=== PATIENT | female | born 1960 | race Caucasian/White ===

== ENCOUNTER 2016-05-14 22:51 | Emergency (ER) | payer SELFPAY ==
[~2016-05-14] VITALS: Ht 170.2 cm; Wt 66.0 kg
[~2016-05-14 22:51] MED LIST: Z.0.NO CURRENT MEDS
[2016-05-14 23:00] VITALS: BP 122/70; PULSE 88; RESP 20; TEMP 98.2; O2SAT 98
[2016-05-14 23:39] LABS: AUTOMATED NEUTROPHIL # 4.1 TH/MM3 (1.8-7.7); BASOPHIL # 0.1 TH/MM3 (0-0.2); BASOPHIL % 0.7 % (0.0-2.0); EOSINOPHIL # 0.1 TH/MM3 (0-0.4); EOSINOPHIL % 1.7 % (0.0-4.0); HEMATOCRIT 41.1 % (35.0-46.0); HEMO FLAGS DIFF FINAL; LYMPH % 41.1 % (9.0-44.0); LYMPHOCYTE # 3.3 TH/MM3 (1.0-4.8); MEAN CELL VOLUME 96.6 FL (80.0-100.0); MEAN CORPUSCULAR HEMOGLOBIN 32.8 PG (27.0-34.0); MEAN CORPUSCULAR HGB CONC 33.9 % (32.0-36.0); MONO % 6.5 % (0.0-8.0); PLATELET COUNT 188 TH/MM3 (150-450); RED BLOOD COUNT 4.26 MIL/MM3 (4.00-5.30); RED CELL DISTRIBUTION WIDTH 13.7 % (11.6-17.2); WHITE BLOOD COUNT 8.1 TH/MM3 (4.0-11.0)
[2016-05-14 23:43] LABS: BLOOD, URINE NEG (NEG); GLUCOSE,URINE NEG (NEG); KETONE, URINE NEG (NEG); NITRITE,URINE NEG (NEG); URINE COLOR COLORLESS (YELLW/STRAW)
[2016-05-14 23:44] LABS: COMMENT (UR) CULT NOT INDICATED; CULTURE IF INDICATED CULT NOT INDICATED
[2016-05-14 23:50] LABS: AMPHETAMINE, URINE NEG (NEG); BARBITURATES, URINE NEG (NEG); COCAINE, URINE NEG (NEG)
[2016-05-14 23:59] LABS: ALT (GPT) 43 U/L (10-53); ANION GAP 11 MEQ/L (5-15); AST (GOT) 62 U/L (15-37); BICARBONATE 26.2 MEQ/L (21.0-32.0); BLOOD UREA NITROGEN 4 MG/DL (7-18); CHLORIDE 103 MEQ/L (98-107); GLOMERULAR FILTRATION RATE 123 ML/MIN (>89); POTASSIUM 3.3 MEQ/L (3.5-5.1); SODIUM (NA) 140 MEQ/L (136-145)
[2016-05-15 00:02] LABS: ALKALINE PHOSPHATASE 61 U/L (45-117); TOTAL BILIRUBIN ADULT 0.2 MG/DL (0.2-1.0)
[2016-05-15] MEDS ORDERED: TRAZ50TA12 PO (01:24)
[2016-05-15] MEDS ORDERED: VENL75TA PO (01:24)
[2016-05-15] MEDS ORDERED: POTASSIUM CHLORIDE 20 MEQ CONTROLLED RELEASE TAB PO ONE (01:30)
--- NOTE | 2016-05-15 01:34 | PD ---
HPI Chief Complaint: Psychiatric Symptoms Time Seen by Provider: 01:30 Travel History International Travel<30 days: No Contact w/Intl Traveler<30days: No Traveled to known affect area: No History of Present Illness HPI Patient comes in under a [place] act by police for depression and tearing up her house. Patient denies any homicidal or suicidal ideations. Patient states she is just feeling depressed and drank a little too much tonight. Denies any medical concerns. Denies any chest pain, shortness breath, nausea, vomiting, abdominal pain, or fevers. PFSH Past Medical History Medical History: Denies Significant Hx Immunizations Current: Yes Tetanus Vaccination: Unknown Influenza Vaccination: No ?: Not Past Surgical History Abdominal Surgery: Yes (BOWEL RESECECTION) Hysterectomy: Yes Social History Alcohol Use: No Tobacco Use: Yes (1 PPD) Substance Use: No Allergies-Medications (Allergen,Severity, Reaction): Coded Allergies: No Known Allergies (Verified , 05/14/16) Reported Meds & Prescriptions Reported Meds & Active Scripts Active Reported Trazodone (Trazodone HCl) 50 Mg Tab 50 Mg PO TID PRN Effexor (Venlafaxine HCl) 75 Mg Tab 75 Mg PO DAILY Review of Systems Except as stated in HPI: all other systems reviewed are Neg Physical Exam Narrative GENERAL: Well-developed, well nourished, in no acute distress, and non-ill appearing. SKIN: Warm and dry. HEAD: Atraumatic. Normocephalic. EYES: Pupils equal and round. EOMI. No scleral icterus. No injection or drainage. ENT: No nasal bleeding or discharge. Mucous membranes pink and moist. NECK: Trachea midline. Supple. No nuclear rigidity. CARDIOVASCULAR: Regular rate and rhythm. No murmur appreciated. RESPIRATORY: No accessory muscle use. No respiratory distress. Clear to auscultation. Breath sounds equal bilaterally. MUSCULOSKELETAL: No obvious deformities. No clubbing. No cyanosis. No edema. Full range of motion. NEUROLOGICAL: Awake and alert. No obvious cranial nerve deficits. Motor grossly within normal limits. Normal speech. PSYCHIATRIC: Appropriate mood and affect; insight and judgment normal. Data Data Last Documented VS Vital Signs Date Time Temp Pulse Resp B/P Pulse Ox O2 Delivery O2 Flow Rate FiO2 05/14/16 23:00 98.2 88 20 122/70 98 Orders Complete Blood Count With Diff (05/14/16 23:09) Comprehensive Metabolic Panel (05/14/16 23:09) Urinalysis - C+S If Indicated (05/14/16 23:09) Psych Screen (05/14/16 23:09) Diet Regular Basic (05/15/16 Breakfast) Drug Screen, Random Urine (05/14/16 23:09) Alcohol (Ethanol) (05/14/16 23:09) Potassium Chloride (Kcl) (05/15/16 01:30) Labs Laboratory Tests Test 05/14/16 05/14/16 23:10 23:15 Urine Color COLORLESS Urine Turbidity CLEAR Urine pH 5.0 Urine Specific [place] 1.002 Urine Protein NEG mg/dL Urine Glucose (UA) NEG mg/dL Urine Ketones NEG mg/dL Urine Occult Blood NEG Urine Nitrite NEG Urine Bilirubin NEG Urine Urobilinogen LESS THAN 2.0 MG/DL Urine Leukocyte Esterase NEG Urine RBC 1 /hpf Microscopic Urinalysis Comment CULT NOT INDICATED Urine Opiates Screen NEG Urine Barbiturates Screen NEG Urine Amphetamines Screen NEG Urine Benzodiazepines Screen NEG Urine Cocaine Screen NEG Urine Cannabinoids Screen NEG White Blood Count 8.1 TH/MM3 Red Blood Count 4.26 MIL/MM3 Hemoglobin 14.0 GM/DL Hematocrit 41.1 % Mean Corpuscular Volume 96.6 FL Mean Corpuscular Hemoglobin 32.8 PG Mean Corpuscular Hemoglobin 33.9 % Concent Red Cell Distribution Width 13.7 % Platelet Count 188 TH/MM3 Mean Platelet Volume 9.5 FL Neutrophils (%) (Auto) 50.0 % Lymphocytes (%) (Auto) 41.1 % Monocytes (%) (Auto) 6.5 % Eosinophils (%) (Auto) 1.7 % Basophils (%) (Auto) 0.7 % Neutrophils # (Auto) 4.1 TH/MM3 Lymphocytes # (Auto) 3.3 TH/MM3 Monocytes # (Auto) 0.5 TH/MM3 Eosinophils # (Auto) 0.1 TH/MM3 Basophils # (Auto) 0.1 TH/MM3 CBC Comment DIFF FINAL Differential Comment Sodium Level 140 MEQ/L Potassium Level 3.3 MEQ/L Chloride Level 103 MEQ/L Carbon Dioxide Level 26.2 MEQ/L Anion Gap 11 MEQ/L Blood Urea Nitrogen 4 MG/DL Creatinine 0.52 MG/DL Estimat Glomerular Filtration 123 ML/MIN Rate Random Glucose 78 MG/DL Calcium Level 8.6 MG/DL Total Bilirubin 0.2 MG/DL Aspartate Amino Transf 62 U/L (AST/SGOT) Alanine Aminotransferase 43 U/L (ALT/SGPT) Alkaline Phosphatase 61 U/L Total Protein 7.8 GM/DL Albumin 4.3 GM/DL Ethyl Alcohol Level 276 MG/DL MDM Medical Decision Making Medical Screen Exam Complete: Yes Emergency Medical Condition: Yes Differential Diagnosis Depression, suicidal, homicidal, alcohol intoxication, other Narrative Course Patient was seen and examined. Labs were obtained and reviewed. Patient medically cleared for further treatment and evaluation by psych. Final disposition per psych. Diagnosis Primary Impression: Alcohol intoxication Qualified Code: F10.120 - Alcohol intoxication, uncomplicated Additional Impression: Hypokalemia Condition: Stable Jose Levy May 15, 2016 01:34
[2016-05-15 05:14] VITALS: BP 126/70; PULSE 96; RESP 18
[2016-05-15 10:00] VITALS: BP 112/77; PULSE 98; RESP 18; TEMP 97.4; O2SAT 96
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
== END 2016-05-15 13:41 | disposition home or self-care (01) ==
LOC: NEPJ 22:51
DX: F10.120 Alcohol abuse with intoxication, uncomplicated (principal); E87.6 Hypokalemia; F17.200 Nicotine dependence, unspecified, uncomplicated; Z86.59 Personal history of other mental and behavioral disorders
CPT/HCPCS: 80053; 80307; 81001; 85025; 99283

== ENCOUNTER 2016-06-28 10:35 | Observation (INO) | payer SELFPAY ==
[2016-06-28] VITALS (10 sets, daily range): BP systolic 140–170; BP diastolic 88–101; PULSE 65–82; RESP 16–20; TEMP 96.7–98.6; O2SAT 64–99
[~2016-06-28] VITALS: Ht 167.6 cm; Wt 62.5 kg
[~2016-06-28 10:35] MED LIST changes: +TRAZ50TA12 PO; +VENL75TA PO; -Z.0.NO CURRENT MEDS
[2016-06-28] MEDS ORDERED: MORPHINE SULFATE 4 MG/ML INJ IV PUSH ONE ×2 (11:00→12:45)
[2016-06-28] MEDS ORDERED: SODIUM CHLORIDE 0.9% FLUSH 10 ML FLUSH IVF PRN (11:00)
[2016-06-28] MEDS ORDERED: ASPIRIN 325 MG TAB PO ONE (11:00)
--- NOTE | 2016-06-28 11:20 | PD ---
HPI Chief Complaint: Respiratory Symptoms Time Seen by Provider: 10:52 Travel History International Travel<30 days: No Contact w/Intl Traveler<30days: No Traveled to known affect area: No History of Present Illness HPI 55yo F with PMH of depression presents to the ED with c/o chest pain for 1 week but worst last night. Pt states her was playing with her 5 days ago and tried to pick her up with his shoulder but was not able to. Then she started feeling soreness in her chest and pain in bilateral chest wall radiating to bilateral upper back and pain is sharp and worst with movement. States pain was so bad she felt difficulty breathing last night. States started off as soreness but now has midsternal chest pain since last night. Denies any fever, fall, n/v, diaphoresis, abdominal pain, focal weakness or numbness. PFSH Past Medical History Hx Anticoagulant Therapy: No Diabetes: No Immunizations Current: Yes ?: Not Past Surgical History Abdominal Surgery: Yes (BOWEL RESECECTION) Hysterectomy: Yes Social History Alcohol Use: No Tobacco Use: Yes (1 PPD) Substance Use: Yes Allergies-Medications (Allergen,Severity, Reaction): Coded Allergies: No Known Allergies (Verified , 06/28/16) Reported Meds & Prescriptions Reported Meds & Active Scripts Active Reported Motrin Ib (Ibuprofen) 200 Mg Tab 800 Mg PO Q6H PRN Trazodone (Trazodone HCl) 50 Mg Tab 100 Mg PO HS PRN Effexor (Venlafaxine HCl) 75 Mg Tab 75 Mg PO TID Review of Systems Except as stated in HPI: all other systems reviewed are Neg Physical Exam Narrative GENERAL: 55yo F in moderate distress. SKIN: Focused skin assessment warm/dry. HEAD: Atraumatic. Normocephalic. EYES: Pupils equal and round. No scleral icterus. No injection or drainage. ENT: No nasal bleeding or discharge. Mucous membranes pink and moist. NECK: Trachea midline. No JVD. CARDIOVASCULAR: Regular rate and rhythm. No murmur appreciated. RESPIRATORY: No accessory muscle use. Clear to auscultation. Breath sounds equal bilaterally. CHEST WALL: No erythema, no crepitus, diffuse ttp. GASTROINTESTINAL: Abdomen soft, non-tender, nondistended. BACK: No midline ttp. +TTP bilateral upper trapezius. MUSCULOSKELETAL: No obvious deformities. No clubbing. No cyanosis. No edema. NEUROLOGICAL: Awake and alert. No obvious cranial nerve deficits. Motor grossly within normal limits. Normal speech. PSYCHIATRIC: Appropriate mood and affect; insight and judgment normal. Data Data Last Documented VS Vital Signs Date Time Temp Pulse Resp B/P Pulse Ox O2 Delivery O2 Flow Rate FiO2 06/28/16 12:34 72 18 142/89 97 Nasal Cannula 2 06/28/16 10:43 98.6 Orders Basic Metabolic Panel (Bmp) (06/28/16 11:00) Ckmb (Isoenzyme) Profile (06/28/16 11:00) Complete Blood Count With Diff (06/28/16 11:00) Magnesium (Mg) (06/28/16 11:00) Prothrombin Time / Inr (Pt) (06/28/16 11:00) Act Partial Throm Time (Ptt) (06/28/16 11:00) Troponin I (06/28/16 11:00) Chest, Single Ap (06/28/16 11:00) Ecg Monitoring (06/28/16 11:00) Bilateral Bp Monitoring (06/28/16 11:00) Iv Access Insert/Monitor (06/28/16 11:00) Oximetry (06/28/16 11:00) Oxygen Administration (06/28/16 11:00) Morphine Inj (Morphine Inj) (06/28/16 11:00) Sodium Chloride 0.9% Flush (Ns Flush) (06/28/16 11:00) Aspirin (Aspirin) (06/28/16 11:00) CKMB (06/28/16 11:30) CKMB% (06/28/16 11:30) Ct Pulmonary Angiogram (06/28/16 ) Admit Order (Ed Use Only) (06/28/16 12:34) Morphine Inj (Morphine Inj) (06/28/16 12:45) Place In Observation (06/28/16 ) Code Status (06/28/16 12:45) Vital Signs (Adult) Q4H (06/28/16 12:45) Activity Oob Ad Carli (06/28/16 12:45) Director Of Purchasing / Telemetry .CONTINUOUS (06/28/16 12:45) Diet Heart Healthy (06/28/16 Lunch) Sodium Chloride 0.9% Flush (Ns Flush) (06/28/16 12:45) Sodium Chloride 0.9% Flush (Ns Flush) (06/28/16 21:00) Acetaminophen (Tylenol) (06/28/16 12:45) Ondansetron Inj (Zofran Inj) (06/28/16 12:45) Magnesium Hydroxide Liq (Milk Of Magnesi (06/28/16 12:45) Basic Metabolic Panel (Bmp) (06/29/16 06:00) Complete Blood Count With Diff (06/29/16 06:00) Troponin I (06/28/16 16:00) Troponin I (06/28/16 22:00) Electrocardiogram (06/28/16 16:00) Electrocardiogram (06/28/16 22:00) Resp Oxygen Cedrick C Titrat 1-4 L (06/28/16 ) Enoxaparin Inj (Lovenox Inj) (06/28/16 15:00) Naloxone Inj (Narcan Inj) (06/28/16 12:45) Labs Laboratory Tests Test 06/28/16 11:30 White Blood Count 7.4 TH/MM3 Red Blood Count 4.67 MIL/MM3 Hemoglobin 15.1 GM/DL Hematocrit 45.4 % Mean Corpuscular Volume 97.1 FL Mean Corpuscular Hemoglobin 32.3 PG Mean Corpuscular Hemoglobin 33.3 % Concent Red Cell Distribution Width 12.9 % Platelet Count 222 TH/MM3 Mean Platelet Volume 8.9 FL Neutrophils (%) (Auto) 65.1 % Lymphocytes (%) (Auto) 23.2 % Monocytes (%) (Auto) 8.9 % Eosinophils (%) (Auto) 2.2 % Basophils (%) (Auto) 0.6 % Neutrophils # (Auto) 4.8 TH/MM3 Lymphocytes # (Auto) 1.7 TH/MM3 Monocytes # (Auto) 0.7 TH/MM3 Eosinophils # (Auto) 0.2 TH/MM3 Basophils # (Auto) 0.0 TH/MM3 CBC Comment DIFF FINAL Differential Comment Prothrombin Time 9.5 SEC Prothromb Time International 0.9 RATIO Ratio Activated Partial 25.8 SEC Thromboplast Time Sodium Level 143 MEQ/L Potassium Level 3.9 MEQ/L Chloride Level 108 MEQ/L Carbon Dioxide Level 27.6 MEQ/L Anion Gap 7 MEQ/L Blood Urea Nitrogen 8 MG/DL Creatinine 0.60 MG/DL Estimat Glomerular Filtration 105 ML/MIN Rate Random Glucose 95 MG/DL Calcium Level 9.1 MG/DL Magnesium Level 2.5 MG/DL Total Creatine Kinase 181 U/L Creatine Kinase MB 2.8 NG/ML Troponin I LESS THAN 0.02 NG/ML MDM Medical Decision Making Medical Screen Exam Complete: Yes Emergency Medical Condition: Yes Interpretation(s) EKG: NSR 84bpm. Normal axis. Peaked T waves. No ST segment elevation or depression. Differential Diagnosis Musculoskeletal pain vs. electrolyte abnormality vs. ACS vs. Pneumonia Narrative Course 55yo F with atypical chest pain that is worst since yesterday. Pt also started feeling sob since yesterday. Labs reviewed, no leukocytosis. Troponin negative. CXR showed no acute disease. EKG showed peaked T waves and K is normal at 3.9. Am concerning if this is hyperacute T wave and pt has not had any cardiac work up or similar chest pain. Pt is over 50 year old so cannot use PERC rule to r/o PE. Will obtain CT angio. CT angio showed no PE, mild emphysema. Discussed with Dr. Clinton and will admit to chest pain center for serial EKG and cardiac enzymes. Diagnosis Primary Impression: Chest pain Qualified Code: R07.9 - Chest pain, unspecified type Admitting Information Admitting Physician Requests: Lucille Sierra DO Jun 28, 2016 11:20
[2016-06-28] MEDS ORDERED: MOTR200T4 PO (11:24)
[2016-06-28 11:38] LABS: AUTOMATED NEUTROPHIL # 4.8 TH/MM3 (1.8-7.7); BASOPHIL % 0.6 % (0.0-2.0); EOSINOPHIL # 0.2 TH/MM3 (0-0.4); EOSINOPHIL % 2.2 % (0.0-4.0); HEMATOCRIT 45.4 % (35.0-46.0); HEMO FLAGS DIFF FINAL; LYMPH % 23.2 % (9.0-44.0); LYMPHOCYTE # 1.7 TH/MM3 (1.0-4.8); MEAN CELL VOLUME 97.1 FL (80.0-100.0); MEAN CORPUSCULAR HEMOGLOBIN 32.3 PG (27.0-34.0); MEAN CORPUSCULAR HGB CONC 33.3 % (32.0-36.0); MONO % 8.9 % (0.0-8.0); NEUT % 65.1 % (16.0-70.0); PLATELET COUNT 222 TH/MM3 (150-450); RED BLOOD COUNT 4.67 MIL/MM3 (4.00-5.30); RED CELL DISTRIBUTION WIDTH 12.9 % (11.6-17.2); WHITE BLOOD COUNT 7.4 TH/MM3 (4.0-11.0)
--- NOTE | 2016-06-28 11:46 | RADHPO ---
EXAM DATE/TIME: 06/28/2016 11:21 [place] COMPARISON: No previous studies available for comparison. INDICATIONS : Chest Pain MEDICAL HISTORY : None. SURGICAL HISTORY : None. ENCOUNTER: Initial ACUITY: 1 day PAIN SCORE: 8/10 LOCATION: Bilateral chest FINDINGS: A single view of the chest demonstrates the lungs to be symmetrically aerated without evidence of mas s, infiltrate or effusion. The cardiomediastinal contours are unremarkable. Osseous structures are intact. CONCLUSION: No acute disease. Yair Restrepo MD on June 28, 2016 at 11:44 Board Certified Radiologist. This report was verified electronically.
[2016-06-28 11:49] LABS: CHLORIDE 108 MEQ/L (98-107); POTASSIUM 3.9 MEQ/L (3.5-5.1); SODIUM (NA) 143 MEQ/L (136-145)
[2016-06-28 11:53] LABS: APTT (PATIENT) 25.8 SEC (24.3-30.1); INTERNATIONAL NORMALIZED RATIO 0.9 RATIO; PROTHROMBIN TIME - PATIENT 9.5 SEC (9.8-11.6)
[2016-06-28 11:56] LABS: ANION GAP 7 MEQ/L (5-15); BICARBONATE 27.6 MEQ/L (21.0-32.0)
[2016-06-28 11:57] LABS: BLOOD UREA NITROGEN 8 MG/DL (7-18); MAGNESIUM 2.5 MG/DL (1.5-2.5)
[2016-06-28 12:00] LABS: GLOMERULAR FILTRATION RATE 105 ML/MIN (>89)
[2016-06-28 12:03] LABS: CREATINE KINASE 181 U/L (26-192)
[2016-06-28 12:15] LABS: CKMB 2.8 NG/ML (0.5-3.6)
[2016-06-28] MEDS ORDERED: SODIUM CHLORIDE 0.9% FLUSH 10 ML FLUSH IV FLUSH PRN (12:45)
[2016-06-28] MEDS ORDERED: MAGNESIUM HYDROXIDE SUSP 30 ML CUP PO PRN (12:45)
[2016-06-28] MEDS ORDERED: ONDANSETRON HCL 4 MG/2 ML VIAL IVP PRN (12:45)
[2016-06-28] MEDS ORDERED: NALOXONE HCL 0.4 MG/ML AMP IV PRN (12:45)
[2016-06-28] MEDS ORDERED: ACETAMINOPHEN 325 MG TAB PO PRN (12:45)
--- NOTE | 2016-06-28 13:25 | HHI.HP ---
[facility] Ang[facility]lica Chacko Admission Diagnosis Chest pain Diagnoses: Chief Complaint: Sharp chest pain. Travel History International Travel<30 Days: No Contact w/Intl Traveler <30 Da: No Traveled to Known Affected Are: No History of Present Illness Ms. Chairez is a pleasant 55-year-old female with a history of smoking who presents to the emergency department due to sharp anterior chest pain that started about 5 days ago. The day before her onset of symptoms, patient's lifted her up on his shoulder. From the following day patient started having sharp anterior chest pain, worst with movement. Taking a deep breath also increases her anterior chest pain. She denies any nausea vomiting or diaphoresis. No changes in bowel or bladder habits. No fever chills or cough. Review of Systems Except as stated in HPI: all other systems reviewed are Neg Past Family Social History Past Medical History Depression, bladder incontinence Past Surgical History Total hysterectomy, bowel resection, hernia repair, torn meniscus repair Reported Medications Motrin Ib (Ibuprofen) 200 Mg Tab 800 Mg PO Q6H PRN Trazodone (Trazodone HCl) 50 Mg Tab 100 Mg PO HS PRN Effexor (Venlafaxine HCl) 75 Mg Tab 75 Mg PO TID Allergies: Coded Allergies: No Known Allergies (Verified , 06/28/16) Family History Patient was raised in foster home. However she believes her parents had heart disease, cancer. Social History Smokes one and half pack a day. Drinks alcohol occasionally. Denies using illicit drugs. Physical Exam Vital Signs Vital Signs Date Time Temp Pulse Resp B/P Pulse Ox O2 Delivery O2 Flow Rate FiO2 06/28/16 12:34 72 18 142/89 97 Nasal Cannula 2 06/28/16 11:21 16 99 Nasal Cannula 2 06/28/16 11:21 99 Nasal Cannula 2 06/28/16 11:05 79 16 170/101 06/28/16 11:00 79 16 96 Room Air 06/28/16 10:43 98.6 75 18 151/97 94 Physical Exam GENERAL: This is a well-nourished, well-developed patient, in no apparent distress. SKIN: No rashes, ecchymoses or lesions. Warm and dry. HEAD: Atraumatic. Normocephalic. No temporal or scalp tenderness. EYES: Pupils equal round and reactive. No injection or drainage. ENT: Nose without bleeding, purulent drainage or septal hematoma. Airway patent. NECK: Trachea midline. No lymphadenopathy. Supple, nontender, no meningeal signs. CARDIOVASCULAR: Regular rate and rhythm without murmurs, gallops, or rubs. No JVD. Reproducible severe anterior chest tenderness on light palpation over the anterior mid chest. Pain is also pronounced when patient tries to sit up. RESPIRATORY: Clear to auscultation. Breath sounds equal bilaterally. No wheezes , rales, or rhonchi. GASTROINTESTINAL: Abdomen soft, non-tender, nondistended. No guarding. MUSCULOSKELETAL: Extremities without clubbing, cyanosis, or edema. NEUROLOGICAL: Awake and alert. Cranial nerves II through XII intact. No focal neurological deficits. Normal speech. Laboratory Laboratory Tests Test 06/28/16 11:30 White Blood Count 7.4 Red Blood Count 4.67 Hemoglobin 15.1 Hematocrit 45.4 Mean Corpuscular Volume 97.1 Mean Corpuscular Hemoglobin 32.3 Mean Corpuscular Hemoglobin 33.3 Concent Red Cell Distribution Width 12.9 Platelet Count 222 Mean Platelet Volume 8.9 Neutrophils (%) (Auto) 65.1 Lymphocytes (%) (Auto) 23.2 Monocytes (%) (Auto) 8.9 Eosinophils (%) (Auto) 2.2 Basophils (%) (Auto) 0.6 Neutrophils # (Auto) 4.8 Lymphocytes # (Auto) 1.7 Monocytes # (Auto) 0.7 Eosinophils # (Auto) 0.2 Basophils # (Auto) 0.0 CBC Comment DIFF FINAL Differential Comment Prothrombin Time 9.5 Prothromb Time International 0.9 Ratio Activated Partial 25.8 Thromboplast Time Sodium Level 143 Potassium Level 3.9 Chloride Level 108 Carbon Dioxide Level 27.6 Anion Gap 7 Blood Urea Nitrogen 8 Creatinine 0.60 Estimat Glomerular Filtration 105 Rate Random Glucose 95 Calcium Level 9.1 Magnesium Level 2.5 Total Creatine Kinase 181 Creatine Kinase MB 2.8 Troponin I LESS THAN 0.02 Result Diagram: 06/28/16 1130 06/28/16 1130 Imaging Last Impressions Chest X-Ray 4/24/17 1100 Signed Impressions: Service Date/Time: Tuesday, June 28, 2016 11:21 - CONCLUSION: No acute disease. Yair Restrepo MD CT Angiography 06/28/16 0000 Signed Impressions: Service Date/Time: Tuesday, June 28, 2016 13:15 - CONCLUSION: 1. No evidence of pulmonary embolism. 2. Mild emphysema. Evaristo Rodriguez MD Assessment and Plan Problem List: (1) Costochondral chest pain ICD Code: R07.1 Status: Acute (2) Tobacco abuse ICD Code: Z72.0 Status: Acute (3) Depression ICD Code: F32.9 Status: Acute Assessment and Plan Ms. Chairez is a pleasant 55-year-old female with a history of tobacco use who presents to the emergency department today due to anterior chest wall sharp pain that started about 5 days ago after her lifted her up on his shoulder. Patient has been using ibuprofen without much relief of her symptoms. Patient denies any nausea vomiting or diaphoresis. Her pain is worse with any kind of movement or deep breathing. Chest pain is also reproducible by light palpation over mid anterior chest wall. - Costochondral chest pain - Less likely cardiac origin. However, we will check two more sets of troponins. - EKG reviewed, peaked T wave noted. Patient's K+ is 3.9. Peaked T wave is likely a normal variant for this patient. - Patient received Aspirin 325mg in the ED. - Start Ketorolac 30mg IV once then 10mg Q6hrs. - Start Methocarbamol 750mg Q8hrs - Tramadol 50mg Q6hrs PRN for pain 5-10. - Tobacco abuse - Counselled patient regarding her smoking habits and encouraged patient to consider quitting smoking - Patient requests Nicotine patches to be available to her. - Depression - Continue venlafaxine 75 mg by mouth 3 times a day. - Continue trazodone 100 mg by mouth daily at bedtime when necessary for anxiety and/or insomnia. Full code. Lovenox. Robby Clinton DO Jun 28, 2016 1:25 pm
[2016-06-28] MEDS ORDERED: IOHEXOL 350 MG/ML 10 ML VIAL (for RAD DIAG) IV ONE (13:33)
--- NOTE | 2016-06-28 13:53 | RADHPO ---
EXAM DATE/TIME: 06/28/2016 13:15 [place] COMPARISON: CHEST SINGLE AP, June 28, 2016, 11:21. INDICATIONS : Short of breath. Evaluate for embolism. IV CONTRAST: 65 cc Omnipaque 350 (iohexol) IV RADIATION DOSE: 7.78 CTDIvol (mGy) MEDICAL HISTORY : None SURGICAL HISTORY : Hysterectomy. Bowel resection. Orthopedic surgery. ENCOUNTER: Initial ACUITY: 1 day PAIN SCALE: 0/10 LOCATION: chest TECHNIQUE: Volumetric scanning of the chest was performed using a pulmonary embolism protocol MIP images were re constructed. Using automated exposure control and adjustment of the mA and/or kV according to patien t size, radiation dose was kept as low as reasonably achievable to obtain optimal diagnostic quality images. FINDINGS: PULMONARY ARTERIES: No filling defects are seen in the pulmonary arteries through the segmental level. LUNGS: There is no consolidation or pneumothorax . No concerning pulmonary nodule is visualized. There is m ild underlying emphysema. PLEURAE: There is no pleural thickening or pleural effusion. MEDIASTINUM: There is good visualization of the great vessels of the middle mediastinum. No evidence of mediastin al or hilar adenopathy/mass. MUSCULOSKELETAL: Within normal limits for patient age. MISCELLANEOUS: The visualized upper abdominal organs demonstrate no acute abnormality. CONCLUSION: 1. No evidence of pulmonary embolism. 2. Mild emphysema. Evaristo Rodriguez MD on June 28, 2016 at 13:44 Board Certified Radiologist. This report was verified electronically.
[2016-06-28] MEDS ORDERED: KETOROLAC TROMETHAMINE 30 MG/ML (IVP) VIAL IV PUSH ONE (14:30)
[2016-06-28] MEDS ORDERED: PILL SPLITTER OTHER PRN (14:30)
[2016-06-28] MEDS ORDERED: traZODone HCL 50 MG TAB PO PRN (14:45)
[2016-06-28] MEDS: METHOCARBAMOL 500 MG TAB PO SCH ×2 (14:45→20:37)
[2016-06-28] MEDS ORDERED: ENOXAPARIN SODIUM 30 MG/0.3 ML SYRINGE SQ SCH (15:00)
[2016-06-28] MEDS: traMADol HCL 50 MG TAB PO PRN (16:13)
[2016-06-28] MEDS: VENLAFAXINE HCL 75 MG TAB PO SCH (18:20)
[2016-06-28] MEDS: KETOROLAC TROMETHAMINE 10 MG TAB PO SCH (18:20)
[2016-06-28] MEDS ORDERED: ACETAMINOPHEN/HYDROcodone 325 MG/5 MG TAB PO ONE (19:45)
[2016-06-28] MEDS: SODIUM CHLORIDE 0.9% FLUSH 10 ML FLUSH IV FLUSH SCH (21:00)
[2016-06-29] VITALS: BP 143/89; PULSE 68; RESP 20; TEMP 97.1; O2SAT 95
[2016-06-29 04:00] VITALS: BP 136/90; PULSE 70; RESP 16; TEMP 97.7; O2SAT 93
[2016-06-29] MEDS: METHOCARBAMOL 500 MG TAB PO SCH (05:28)
[2016-06-29] MEDS: KETOROLAC TROMETHAMINE 10 MG TAB PO SCH ×2 (05:29)
[2016-06-29 06:48] LABS: AUTOMATED NEUTROPHIL # 4.2 TH/MM3 (1.8-7.7); BASOPHIL # 0.1 TH/MM3 (0-0.2); BASOPHIL % 1.1 % (0.0-2.0); EOSINOPHIL # 0.2 TH/MM3 (0-0.4); EOSINOPHIL % 3.1 % (0.0-4.0); HEMATOCRIT 41.7 % (35.0-46.0); HEMO FLAGS DIFF FINAL; LYMPH % 30.6 % (9.0-44.0); LYMPHOCYTE # 2.2 TH/MM3 (1.0-4.8); MEAN CELL VOLUME 98.4 FL (80.0-100.0); MEAN CORPUSCULAR HEMOGLOBIN 33.3 PG (27.0-34.0); MEAN CORPUSCULAR HGB CONC 33.8 % (32.0-36.0); MONO % 8.6 % (0.0-8.0); NEUT % 56.6 % (16.0-70.0); PLATELET COUNT 172 TH/MM3 (150-450); RED BLOOD COUNT 4.24 MIL/MM3 (4.00-5.30); RED CELL DISTRIBUTION WIDTH 13.1 % (11.6-17.2); WHITE BLOOD COUNT 7.3 TH/MM3 (4.0-11.0)
[2016-06-29 06:55] LABS: BICARBONATE 31.3 MEQ/L (21.0-32.0)
[2016-06-29 08:00] VITALS: BP 134/87; PULSE 74; RESP 18; TEMP 97.8; O2SAT 94
[2016-06-29 08:24] VITALS: O2SAT 93
--- NOTE | 2016-06-29 08:43 | EKG ---
Date Performed: 06/28/2016 Time Performed: 22:04:26 PTAGE: 55 years EKG: Sinus rhythm . Normal ECG PREVIOUS TRACING : 06/28/2016 16.08 No significant change from previous tracing noted. DOCTOR: Oswaldo Delacruz Interpretating Date/Time 06/29/2016 08:41:25
[2016-06-29] MEDS: VENLAFAXINE HCL 75 MG TAB PO SCH (08:48)
[2016-06-29] MEDS: SODIUM CHLORIDE 0.9% FLUSH 10 ML FLUSH IV FLUSH SCH (08:50)
--- NOTE | 2016-06-29 08:58 | EKG ---
Date Performed: 06/28/2016 Time Performed: 16:08:34 PTAGE: 55 years EKG: Sinus rhythm . Poor R wave progression - probable normal variant Borderline ECG PREVIOUS TRACING : 06/28/2016 10.52 No significant change from previous tracing noted. DOCTOR: Oswaldo Delacruz Interpretating Date/Time 06/29/2016 08:57:10
[2016-06-29] MEDS ORDERED: REMOVE OLD PATCH T-DERMAL SCH (09:00)
[2016-06-29] MEDS ORDERED: NICOTINE 14 MG/24 HR PATCH T-DERMAL SCH (09:00)
[2016-06-29] MEDS: traMADol HCL 50 MG TAB PO PRN (09:11)
[2016-06-29] MEDS ORDERED: PERC7.5T13 PO (10:38)
[2016-06-29] MEDS ORDERED: KETO10 PO (10:38)
[2016-06-29] MEDS ORDERED: METH500T3 PO (10:38)
[2016-06-29] MEDS ORDERED: OMEP20TA PO (10:39)
[2016-06-29] MEDS ORDERED: MORPHINE SULFATE 8 MG/ML INJ IV PUSH ONE (10:45)
--- NOTE | 2016-06-29 13:05 | EKG ---
Date Performed: 06/28/2016 Time Performed: 10:52:34 PTAGE: 55 years EKG: Sinus rhythm Poor R wave progression - probable normal variant Tall T waves - consider acute ischemia or hyperkal emia Borderline ECG NO PREVIOUS TRACING DOCTOR: Oswaldo Delacruz Interpretating Date/Time 06/29/2016 13:04:24
--- NOTE | 2016-06-29 23:34 | HHI.PR ---
Subjective Remarks Late entry. Follow up for costochondritis. Patient has persistent anterior chest wall pain. No fever, chills. Objective Vitals Vital Signs Date Time Temp Pulse Resp B/P Pulse Ox O2 Delivery O2 Flow Rate FiO2 06/29/16 08:24 93 21 06/29/16 08:00 97.8 74 18 134/87 94 06/29/16 04:00 97.7 70 16 136/90 93 06/29/16 00:00 97.1 68 20 143/89 95 I/O 06/28/16 06/28/16 06/28/16 06/29/16 06/29/16 06/29/16 07:00 15:00 23:00 07:00 15:00 23:00 Intake Total 550 ml 240 ml 240 ml Output Total 1 ml Balance 550 ml 239 ml 240 ml Intake Oral 550 ml 240 ml 240 ml Output Urine Total 1 ml # Voids 1 2 # Bowel Movements 1 0 Result Diagram: 06/29/16 0606 06/29/16 0606 Imaging Last Impressions Chest X-Ray 06/28/16 1100 Signed Impressions: Service Date/Time: Tuesday, June 28, 2016 11:21 - CONCLUSION: No acute disease. Yair Restrepo MD CT Angiography 06/28/16 0000 Signed Impressions: Service Date/Time: Tuesday, June 28, 2016 13:15 - CONCLUSION: 1. No evidence of pulmonary embolism. 2. Mild emphysema. Evaristo Rodriguez MD Objective Remarks GENERAL: AOX3, NAD. SKIN: Warm and dry. HEAD: Normocephalic. EYES: No scleral icterus. No injection or drainage. NECK: Supple, trachea midline. No JVD or lymphadenopathy. CARDIOVASCULAR: Regular rate and rhythm without murmurs, gallops, or rubs. Anterior chest wall tenderness on palpation. RESPIRATORY: Breath sounds equal bilaterally. No accessory muscle use. GASTROINTESTINAL: Abdomen soft, non-tender, nondistended. MUSCULOSKELETAL: No cyanosis, or edema. BACK: Nontender without obvious deformity. No CVA tenderness. Procedures None. A/P Problem List: (1) Costochondral chest pain ICD Code: R07.1 Status: Acute (2) Tobacco abuse ICD Code: Z72.0 Status: Acute (3) Depression ICD Code: F32.9 Status: Acute Assessment and Plan Ms. Chairez is a pleasant 55-year-old female with a history of tobacco use who presents to the emergency department today due to anterior chest wall sharp pain that started about 5 days ago after her lifted her up on his shoulder. Patient has been using ibuprofen without much relief of her symptoms. Patient denies any nausea vomiting or diaphoresis. Her pain is worse with any kind of movement or deep breathing. Chest pain is also reproducible by light palpation over mid anterior chest wall. - Costochondral chest pain - Less likely cardiac origin. However, we will check two more sets of troponins. - EKG reviewed, peaked T wave noted. Patient's K+ is 3.9. Peaked T wave is likely a normal variant for this patient. - Patient received Aspirin 325mg in the ED. - Ketorolac 30mg IV given once then 10mg Q6hrs. - Methocarbamol 750mg Q8hrs - Tramadol 50mg Q6hrs PRN for pain 5-10. - Tobacco abuse - Counselled patient regarding her smoking habits and encouraged patient to consider quitting smoking - Patient requests Nicotine patches to be available to her. - Depression - Continue venlafaxine 75 mg by mouth 3 times a day. - Continue trazodone 100 mg by mouth daily at bedtime when necessary for anxiety and/or insomnia. Full code. Lovenox. Discharge patient to home Condition on discharge: Improved Regular Diet as tolerated Ad Carli activity Rx written: - Toradol 10mg Q6hrs #15 - Methocaramol 750mg Q8hrs # 21 - Omeprazole 20mg Qday - Percocet 7.5/325 Q6hrs PRN for pain #28 Follow-up with primary care physician within one week. Robby Clinton DO Jun 29, 2016 23:33
== END 2016-06-29 12:17 | disposition home or self-care (01) ==
LOC: PHED 10:35 → PHEDA 12:50 → PH3B 13:59
PROVIDERS: ADMIT Hospitalist; ATTEND Hospitalist
DX: R07.1 Chest pain on breathing (principal); F32.9 Major depressive disorder, single episode, unspecified; F41.9 Anxiety disorder, unspecified; G47.00 Insomnia, unspecified; F17.210 Nicotine dependence, cigarettes, uncomplicated; J43.9 Emphysema, unspecified; R94.31 Abnormal electrocardiogram [ECG] [EKG]
CPT/HCPCS: 71010; 71275; 80048; 82550; 82552; 83735; 84484; 85025; 85610; 85730; 93005; 96374; 96376; 99285; G0378; J1650; J1885; J2270; Q9967